=== PATIENT | female | born 1995 ===

== ENCOUNTER 2017-03-01 21:46 | Emergency (ER) | payer BC, MEDICAID ==
[2017-03-01 21:47] VITALS: BMI 47.1
[2017-03-01 22:04] VITALS: BP 135/98; PULSE 78; RESP 16; TEMP 98.7; O2SAT 98
[2017-03-01] MEDS ORDERED: Iohexol 240 (50 ml) PO ONE (23:04)
[2017-03-01 23:35] LABS: BASO % 0.4 % (0.0-2.0); EOS # 0.1 K/uL (0.0-0.7); EOS % 0.6 % (0.0-4.0); HEMATOCRIT 38.9 % (34.0-47.0); LYMPH # 1.8 K/uL (1.0-4.3); LYMPH % 18.3 % (20.0-40.0); MEAN CELL VOLUME 86.6 fl (81.0-99.0); MEAN CORPUSCULAR HEMOGLOBIN 28.4 pg (27.0-31.0); MEAN CORPUSCULAR HGB CONC 32.8 g/dL (33.0-37.0); MEAN PLATELET VOLUME 7.2 fl (7.2-11.7); MONO # 0.5 K/uL (0.0-0.8); MONO % 5.5 % (0.0-10.0); NEUT # 7.5 K/uL (1.8-7.0); NEUT % 75.2 % (50.0-75.0); NRBC % 0.1 % (0.0-0.0); RED CELL DISTRIBUTION WIDTH 14.8 % (11.5-14.5)
--- NOTE | 2017-03-01 23:36 | ED PDOC ---
HPI: Abdomen Time Seen by Provider: 03/01/17 22:09 Chief Complaint (Nursing): Abdominal Pain Chief Complaint (Provider): Epigastric Pain History Per: Patient History/Exam Limitations: no limitations Onset/Duration Of Symptoms: Hrs (x9) Additional Complaint(s): Genet Lowe is a 22 year old female with a past medical history of gastric sleeve and obesity and a past surgical history of an appendectomy presenting to the ED for an evaluation of abdominal pain occurring since 1 PM today prior to arrival. The patient reports the pain is nonradiating, sharp epigastric pain that intermittently waxes and wanes. The patient reports an associated 4 episodes of non-bloody diarrhea and 1 episode of nonbilious, nonbloody vomit. She denies any loss of appetite, fever, chills, or urinary symptoms. PMD: Haseeb Romeo MD Past Medical History Reviewed: Historical Data, Nursing Documentation, Vital Signs Vital Signs: Last Vital Signs Temp 98.7 F 03/01/17 22:01 Pulse 78 03/01/17 22:01 Resp 16 03/01/17 22:01 BP 135/98 H 03/01/17 22:01 Pulse Ox 98 03/01/17 23:39 - Medical History Other PMH: gastric sleeve and obesity - Surgical History Surgical History: Appendectomy - Family History Family History: States: Diabetes, Hypertension - Social History Current smoker - smoking cessation education provided: No Ex-Smoker (has not smoked in the last 12 months): No - Immunization History Hx Tetanus Toxoid Vaccination: No Hx Influenza Vaccination: No Hx Pneumococcal Vaccination: No - Home Medications Home Medications: Ambulatory Orders Medication Instructions Recorded Multivitamin 1 tab PO BID 04/28/13 Omeprazole 40 mg PO DAILY 04/28/13 Bacitracin 1 gm TOP BID #1 tube 12/22/13 - Allergies Allergies/Adverse Reactions: Allergies Allergy/AdvReac Type Severity Reaction Status Date / Time No Known Allergies Allergy Verified 12/22/13 12:54 Review of Systems ROS Statement: Except As Marked, All Systems Reviewed And Found Negative (As per hpi otherwise negative) Gastrointestinal: Positive for: Vomiting, Abdominal Pain (epigastric), Diarrhea. Negative for: Hematochezia, Hematemesis Physical Exam - Reviewed Nursing Documentation Reviewed: Yes Vital Signs Reviewed: Yes - Laboratory Results Result Diagrams: 03/01/17 23:31 03/01/17 23:31 - ECG O2 Sat by Pulse Oximetry: 98 (RA) Pulse Ox Interpretation: Normal Medical Decision Making Medical Decision Making: Time: 22:09 Impression: Abdominal pain. Differential includes but is not limited to obstruction, gastritis, Peptic Ulcer Disease, Gallbladder disease, Pancreatitis Plan: * CMP * Lact Acid * Lipase * CBC (with differential) * Omnipaque 240 (50 ML) PO * Pepcid 40 mg IVP * Zofran Inj 8 mg IV * CT Abd Pelvis PO & IV Contrast * Reevaluation Scribe Attestation: Documented by Niru Tay, acting as a scribe for Kalyn Siddiqui MD. Provider Scribe Attestation: All medical record entries made by the Scribe were at my direction and personally dictated by me. I have reviewed the chart and agree that the record accurately reflects my personal performance of the history, physical exam, medical decision making, and the department course for this patient. I have also personally directed, reviewed, and agree with the discharge instructions and disposition. Disposition - Disposition Disposition: Transfer of Care Forms: [employer] (Irish) Patient Signed Over To: Earnest Whitehead (00:23) Handoff Comments: Patient signed over to Earnest Whitehead MD pending CT Abd Pelvis PO & IV Contrast
[2017-03-02 00:02] LABS: ALB/GLOB RATIO 1.2 (1.0-2.1); ALKALINE PHOSPHATASE 96 U/L (38-126); ALT/SGPT 32 U/L (9-52); AST/SGOT 23 U/L (14-36); BILIRUBIN,TOTAL 0.4 mg/dl (0.2-1.3); BLOOD UREA NITROGEN 11 mg/dl (7-17); CARBON DIOXIDE 27 mmol/L (22-30); CHLORIDE 103 mmol/L (98-107); GFR AFRICAN-AMERICAN > 60; GLUCOSE,RANDOM 94 mg/dL (65-105); LIPASE 113 U/L (23-300); SODIUM 134 mmol/l (132-148); TOTAL PROTEIN 7.6 G/DL (6.3-8.2)
--- NOTE | 2017-03-02 00:26 | ED PDOC ---
- Laboratory Results Result Diagrams: 03/01/17 23:31 03/01/17 23:31 - ECG O2 Sat by Pulse Oximetry: 98 (RA) Pulse Ox Interpretation: Normal Medical Decision Making Medical Decision Makin:23 Patient signed over from Kalyn Siddiqui MD to me, Earnest Whitehead MD, pending CT Abd Pelvis PO & IV Contrast CT Abd Pelvis: FINDINGS: Lower thorax: No acute findings. ABDOMEN: Liver: The liver is unremarkable. Gallbladder and bile ducts: The gallbladder is unremarkable. No biliary ductal dilatation. Pancreas: The pancreas is unremarkable. Spleen: The spleen is unremarkable. Adrenals: The adrenal glands are unremarkable. Kidneys and ureters: Symmetric renal enhancement without hydronephrosis. Stomach and bowel: Post sleeve gastrectomy. No evidence of bowel obstruction. No pericolonic inflammatory stranding. Appendix: There has been an appendectomy.PELVIS: Bladder: No focal wall thickening of the urinary bladder. Reproductive: Unremarkable as visualized. ABDOMEN and PELVIS: Intraperitoneal space: No significant peritoneal free fluid. No free peritoneal air. Bones/ joints: No acute osseous abnormality. Soft tissues: No soft tissue swelling. Vasculature: Unremarkable. No abdominal aortic aneurysm. Lymph nodes: No enlarged lymph nodes. IMPRESSION: No acute findings. Thank you for allowing us to participate in the care of your patient. Dictated and Authenticated by: Deangelo Smith MD 1:57 AM Eastern Time ([place] & [place]) Pt. feeling better, no complaints of pain at this time. Gave referral to GI. Return precautions discussed. Scribe Attestation: Documented by Niru Tay, acting as a scribe for Earnest Whitehead MD. Provider Scribe Attestation: All medical record entries made by the Scribe were at my direction and personally dictated by me. I have reviewed the chart and agree that the record accurately reflects my personal performance of the history, physical exam, medical decision making, and the department course for this patient. I have also personally directed, reviewed, and agree with the discharge instructions and disposition. Disposition - Clinical Impression Clinical Impression: Abdominal pain - POA Present On Arrival: None - Disposition Referrals: Roberto Reynolds MD [Staff Provider] - Haseeb Romeo [Family Provider] - Disposition: Routine/Home Disposition Time: 03:00 Condition: STABLE Prescriptions: Dicyclomine [Dicyclomine HCl] 10 mg PO QID #30 cap Famotidine [Pepcid] 20 mg PO BID #20 tab Omeprazole 20 mg PO DAILY #30 capsule. Instructions: Gastritis (ED), Epigastric Pain (ED) Forms: [facility] (Kazakh)
[2017-03-02] MEDS ORDERED: Iohexol 300 100 ML IJ ONE (01:09)
[2017-03-02] MEDS ORDERED: Sodium Chloride 0.9% 50 ML IV ONE (01:09)
--- NOTE | 2017-03-02 09:33 | CT ---
PROCEDURE: CT Abdomen and Pelvis with contrast HISTORY: abd pain h/o gastric sleeve COMPARISON: None. TECHNIQUE: Following oral and intravenous contrast administration, a CT examination of the abdomen and pelvis performed from the domes of the diaphragms to the symphysis pubis with reformatted datasets provided not only axial but also sagittal and coronal series. Contrast dose: Omnipaque 300, 95 cc. Radiation dose: Total exam DLP = 1066.45 mGy-cm. This CT exam was performed using one or more of the following dose reduction techniques: Automated exposure control, adjustment of the mA and/or kV according to patient size, and/or use of iterative reconstruction technique. FINDINGS: LOWER THORAX: Unremarkable. LIVER: Unremarkable. No gross lesion or ductal dilatation. GALLBLADDER AND BILE DUCTS: Unremarkable. PANCREAS: Unremarkable. No gross lesion or ductal dilatation. SPLEEN: Unremarkable. ADRENALS: Unremarkable. No mass. KIDNEYS AND URETERS: Unremarkable. No hydronephrosis. No solid mass. VASCULATURE: Unremarkable. No aortic aneurysm. BOWEL: Postop changes are seen at the stomach which is collapsed, with pattern compatible with clinically reported gastric sleeve prior surgery. No bowel obstruction. No gross mural thickening. APPENDIX: Not identified. PERITONEUM: Unremarkable. No free fluid. No free air. LYMPH NODES: Unremarkable. No enlarged lymph nodes. BLADDER: Unremarkable. REPRODUCTIVE: Unremarkable. BONES: No acute fracture. OTHER FINDINGS: None. IMPRESSION: Postoperative changes seen in the stomach compatible with the clinical history of gastric sleeve surgery. The appendix is not identified as well which may reflect prior appendectomy. There is no CT evidence of appendicitis or other acute intra-abdominal or pelvic process grossly. Clinically correlate further. Concordant preliminary report from [facility], 03/02/2017.
== END 2017-03-02 03:21 | disposition home or self-care (01) ==
LOC: H.ER 21:46
DX: K29.70 Gastritis, unspecified, without bleeding (principal); R10.13 Epigastric pain; E66.9 Obesity, unspecified; Z98.84 Bariatric surgery status
CPT/HCPCS: 74177; 80053; 81025; 83605; 83690; 85025; 96374; 99282; J2405; Q9966; Q9967